=== PATIENT | female | born 1985 | race Caucasian/White ===

== ENCOUNTER 2022-04-04 05:53 | Emergency (ER) | payer MEDICARE, MEDICAID ==
[~2022-04-04] VITALS: Ht 157.5 cm; Wt 57.2 kg
[2022-04-04 06:16] VITALS: BP 112/84
[2022-04-04] MEDS ORDERED: ONDANSETRON 4MG ODT PO STA (07:30)
[2022-04-04] MEDS ORDERED: VISCOUS LIDOCAINE 2% 15 ML UDC PO STA (07:30)
[2022-04-04] MEDS ORDERED: MAGNESIUM/ALUMINUM HYDROXIDE/SIMETHICONE 30ML UDC PO STA (07:30)
[2022-04-04] MEDS ORDERED: FAMOTIDINE 20MG TABLET PO ONE (07:30)
[2022-04-04 07:59] LABS: CHLORIDE 104 mEq/L (98-107)
[2022-04-04 08:10] LABS: BASOPHILS % 0.1 % (0.0-2.0); EOSINOPHILS % 0.1 % (0.0-5.0); HEMATOCRIT. 41.8 % (36.0-48.0); HEMOGLOBIN. 14.3 g/dL (12.0-16.0); LYMPHOCYTES % 10.1 % (20.0-50.0); MEAN CORPUSCULAR VOLUME 87.6 fL (81.0-99.0); MEAN PLATELET VOLUME 8.4 fl (7.4-10.4); MONOCYTES % 13.4 % (2.0-8.0); NEUTROPHILS % 76.3 % (40.0-76.0); PLATELET 205 x1000/uL (130-400); RED BLOOD CELL COUNT 4.77 mill/uL (4.2-5.4); RED CELL DISTRIBUTION WIDTH 13.1 % (11.6-14.6)
[2022-04-04 08:13] LABS: HCG SCREEN NEGATIVE
[2022-04-04] MEDS ORDERED: KETOROLAC 15MG/ML VIAL IM ONE (11:00)
[2022-04-04] MEDS ORDERED: FAMOTIDINE 20MG TABLET PO NR (12:00)
[2022-04-04] MEDS ORDERED: ONDANSETRON 4MG ODT PO NR (12:00)
[2022-04-04] MEDS ORDERED: MAGNESIUM/ALUMINUM HYDROXIDE/SIMETHICONE 30ML UDC PO NR (12:00)
[2022-04-04] MEDS ORDERED: VISCOUS LIDOCAINE 2% 15 ML UDC PO NR (12:00)
== END 2022-04-04 12:01 | disposition home or self-care (01) ==
LOC: ER 06:16
DX: R51.9 Headache, unspecified (principal)
CPT/HCPCS: 36415; 70450; 71045; 80053; 83690; 84703; 85025; 96372; 99285; J1885; Q0162